=== PATIENT | female | born 1980 | race American Indian/Alaskan Native ===

== ENCOUNTER 2021-08-30 15:08 | Outpatient (CLI) | payer BC ==
[2021-08-30 17:25] VITALS: BP 108/68
--- NOTE | 2021-08-30 17:29 | Ultrasound Report ---
US OB limited, US OB BPP wo non-stress INDICATION: BPP/ZORA. TECHNIQUE: Transabdominal. COMPARISON: None available. FINDINGS: There is a single intrauterine . Heart Rate: 35 beats per minute. Position: cephalic. Amniotic Fluid Volume: normal Amniotic Fluid Index (ZORA) in cm (if calculated): 2.7. There is a 10 cm right exophytic fundal lesion most consistent with fibroid. Biophysical Profile: breathing movements: 2 movements:2 posture and tone:2 Qualitative amniotic fluid volume: 2 IMPRESSION: 1. Amniotic fluid is normal. 2. Biophysical profile is normal. 3. Large fundal fibroid Signer Name: Syed Russell MD Signed: 08/30/2021 5:25 PM Workstation Name: [id number]
== END 2021-08-30 17:47 | disposition home or self-care (01) ==
LOC: TRG 15:08 → EDBD 15:08 → LD 15:09 → TRG 17:47
PROVIDERS: ATTEND Obstetrics & Gynecology
DX: O26.893 Other specified pregnancy related conditions, third trimester (principal); E66.9 Obesity, unspecified; D25.9 Leiomyoma of uterus, unspecified; Z3A.39 39 weeks gestation of pregnancy
CPT/HCPCS: 76815; 76819